=== PATIENT | female | born 1960 | race African-American/Black ===

== ENCOUNTER 2020-02-15 15:45 | Emergency (ER) | payer MEDICAID ==
[~2020-02-15] VITALS: Ht 162.6 cm; Wt 76.0 kg
[2020-02-15] MEDS ORDERED: LORAZEPAM 2MG/ML CPJ IV ONE (17:30)
[2020-02-15] MEDS ORDERED: LORAZEPAM 1MG TABLET PO ONE (17:45)
[2020-02-15 17:49] VITALS: BP 162/88
== END 2020-02-15 21:59 | disposition home or self-care (01) ==
LOC: ER 15:45
DX: J40 Bronchitis, not specified as acute or chronic (principal); Z03.818 Encounter for observation for suspected exposure to other biological agents ruled out; Z98.890 Other specified postprocedural states
CPT/HCPCS: 71045; 87635; 99284; C9803

== ENCOUNTER 2020-02-18 01:23 | Emergency (ER) | payer MEDICAID ==
[~2020-02-18] VITALS: Ht 162.6 cm; Wt 72.3 kg
[2020-02-18] MEDS ORDERED: LORAZEPAM 1MG TABLET PO ONE (03:15)
[2020-02-18] MEDS ORDERED: DEXAMETHASONE 4MG TABLET PO ONE (03:15)
[2020-02-18] MEDS ORDERED: IPRATROPIUM/ALBUTEROL 0.5-3(2.5)MG/3ML NEB HHN ONE (03:15)
[2020-02-18 05:46] VITALS: BP 157/87
== END 2020-02-18 05:47 | disposition home or self-care (01) ==
LOC: ER 01:23
DX: J40 Bronchitis, not specified as acute or chronic (principal); I10 Essential (primary) hypertension
CPT/HCPCS: 71045; 93005; 94640; 99283; J8540; Z7610

== ENCOUNTER 2020-04-19 15:17 | Emergency (ER) | payer MEDICAID ==
[~2020-04-19] VITALS: Ht 162.6 cm; Wt 72.2 kg
[2020-04-19 18:32] LABS: HEMATOCRIT. 41.7 % (36.0-48.0); HEMOGLOBIN. 13.7 g/dL (12.0-16.0); LYMPHOCYTES % 29.3 % (20.0-50.0); MEAN CORPUSCULAR VOLUME 88.4 fL (81.0-99.0); MEAN PLATELET VOLUME 9.9 fl (7.4-10.4); MONOCYTES % 7.4 % (2.0-8.0); NEUTROPHILS % 61.3 % (40.0-76.0); PLATELET 170 x1000/uL (130-400); RED BLOOD CELL COUNT 4.71 mill/uL (4.2-5.4); RED CELL DISTRIBUTION WIDTH 13.2 % (11.6-14.6)
[2020-04-19 18:39] LABS: CHLORIDE 104 mEq/L (98-107)
[2020-04-19 20:00] VITALS: BP 152/98
[2020-04-19] MEDS ORDERED: IBUPROFEN 400MG TABLET PO ONE (21:00)
== END 2020-04-19 21:34 | disposition home or self-care (01) ==
LOC: ER 15:17
DX: R07.9 Chest pain, unspecified (principal); M79.10 Myalgia, unspecified site; R06.02 Shortness of breath; R51.9 Headache, unspecified; R09.89 Other specified symptoms and signs involving the circulatory and respiratory systems; R06.7 Sneezing; D25.9 Leiomyoma of uterus, unspecified; Z20.822 Contact with and (suspected) exposure to COVID-19
CPT/HCPCS: 36415; 71045; 80048; 84484; 85025; 85379; 93005; 99285; C9803; U0003